=== PATIENT | male | born 1940 | race Caucasian/White ===

== ENCOUNTER 2019-08-31 14:29 | Inpatient (IN) ==
--- NOTE | 2019-08-31 15:00 | Diag Imaging Result Doc PS360 ---
EXAM: CT HEAD W/O CONTRAST INDICATION: poss stroke TECHNIQUE: This exam was performed using automated exposure control, adjustment of mA or kV according to patient size, and/or use of iterative reconstruction technique. COMPARISON: None. FINDINGS: There is suggestion of very minimal white matter microangiopathy in the subcortical white matter of the frontal lobes. There is no definite acute infarct given the limited sensitivity of CT versus MRI. There is no discrete intracranial mass, mass effect, or intracranial hemorrhage. The surrounding soft tissues and bony structures are essentially unremarkable. IMPRESSION: Suggestion of minimal white matter microangiopathy. No definite acute intracranial pathology by CT. Electronically signed by Kei Omer 08/31/2019 2:58 PM
[2019-08-31] MEDS ORDERED: NS 1,000 ML IV ONE ×2 (15:32→21:42)
[2019-08-31] MEDS ORDERED: ASPIRIN PO ONE (15:33)
--- NOTE | 2019-08-31 16:32 | EKG Report ---
Test Performed on : 08/31/2019 4:30:38 PM Test Reason : Stroke like symptoms Blood Pressure : / mmHG Vent. Rate : 051 BPM Atrial Rate : 051 BPM P-R Int : 160 ms QRS Dur : 088 ms QT Int : 412 ms P-R-T Axes : 022 047 102 degrees QTc Int : 379 ms Sinus bradycardia. T wave abnormality, consider lateral ischemia Abnormal ECG No previous ECGs available Unconfirmed Result
[2019-08-31 16:35] LABS: BASO# 0.05 X1000 (0.0-0.2); BASO% 0.4 % (0.0-0.8); EOS# 0.16 X1000 (0.0-0.7); EOS% 1.3 % (0.0-10.0); HEMATOCRIT 42.6 % (42.0-52.0); HEMOGLOBIN 14.3 g/dL (14.0-18.0); IMM GRAN# 0.14 X1000 (0.0-0.04); IMM GRAN% 1.1 % (0.0-0.5); LYMPH# 2.03 X1000 (1.2-3.4); LYMPH% 16.3 % (20.5-51.1); MCH 29.8 PG (27-31); MCHC 33.6 g/dL (33-37); MCV 88.8 FL (81-99); MONO# 1.11 X1000 (0.11-0.59); MONO% 8.9 % (1.7-9.3); NEUT# 8.95 X1000 (1.4-6.5); PLT 166 X1000 (130-400); RDW 13.7 % (11.5-14.5); WBC 12.44 X1000 (4.8-10.8)
[2019-08-31 16:44] LABS: INR 1.16
[2019-08-31 16:45] LABS: PTT 23.2 Seconds (22.3-41.8)
--- NOTE | 2019-08-31 16:49 | Diag Imaging Result Doc PS360 ---
EXAM: CHEST-PORTABLE INDICATION: stroke like symptoms TECHNIQUE: One view COMPARISON: None. FINDINGS: The lungs are grossly clear. There is no discrete pleural fluid collection or pneumothorax. The cardiomediastinal silhouette and central vasculature are grossly unremarkable. IMPRESSION: No evidence of acute pathology by plain radiograph. Electronically signed by Kei Omer 08/31/2019 4:46 PM
[2019-08-31 16:53] LABS: ALB/GLOB RATIO 1.6; ALBUMIN 4.1 g/dL (3.5-5.0); CALCIUM 9.3 mg/dL (8.8-10.2); CREATININE 1.8 mg/dL (0.7-1.2); MAGNESIUM 2.4 mg/dL (1.5-2.7); POTASSIUM 4.4 mmol/L (3.5-5.1); TOTAL BILIRUBIN 0.33 mg/dL (0.20-1.00); TOTAL PROTEIN 6.6 g/dL (6.3-8.3)
--- NOTE | 2019-08-31 18:41 | PROVIDER DOCUMENTATION ---
This chart was entered by Alexandra Kunz Scribe, acting as scribe for Cruz Benedict MD. HPI-Syncope/Dizziness - General Source: patient, family - History of Present Illness-Syncope/Dizzy Prior Episodes: reports: single episode today Onset/Duration: reports: just prior to arrival Timing: reports: resolved prior to arrival Symptoms prior to episode: reports: none Context: reports: almost passed out. denies: incontinent of urine, incontinent of stool Loss of Consciousness: no loss of consciousness Current Symptoms: reports: weakness (left sided) Recently Seen Here or By Another Healthcare Provider: Yes (PCP) <Cruz Benedict - Last Filed: 08/31/19 18:40> <Saul Banks - Last Filed: 08/31/19 20:39> - General Chief Complaint: Near Syncope Stated Complaint: poss stroke Time Seen by Provider: 08/31/19 15:26 Allergies/Adverse Reactions: Patient Allergies Allergy/AdvReac Type Severity Reaction Status Date / Time No Known Allergies Allergy Verified 08/31/19 16:31 Home Medications: Home Medication List Medication Instructions Recorded Confirmed Last Taken Type Amlodipine Besylate 5 mg PO BID 08/31/19 08/31/19 Unknown History Benazepril HCl 40 mg PO QAM 08/31/19 08/31/19 Unknown History Clonidine [Catapres] 0.1 mg PO BID 08/31/19 08/31/19 Unknown History Levothyroxine Sodium [Levoxyl] 88 mcg PO DAILY 08/31/19 08/31/19 Unknown History Metoprolol Succinate E.r. [Toprol 50 mg PO BID 08/31/19 08/31/19 Unknown History Xl] Tamsulosin [Flomax] 0.4 mg PO DAILY 08/31/19 08/31/19 Unknown History - History of Present Illness-Syncope/Dizzy Nature of Presenting Problem: Patient is a 78 y/o male presenting to the ED today c/o stroke-like symptoms. Daughter reports that patient had sudden onset of decreased responsiveness, pallor, slurred speech, and left sided weakness that lasted approximately 15-20 minutes. EMS confirms that patient had weakness in left upper extremity upon arrival. Daughter reports patient has had episodes of left lower extremity weakness intermittently for the last 4 months and had an MRI of his lumbar spine today to evaluate this. Patient denies chest pain or headache preceding event but states he "felt funny". Patient has full function in left upper extremity now but complains of weakness in left leg, though per family report this is common. Denies all other signs/symptoms. (Cruz Benedict) Review of Systems - Adult - REVIEW OF SYSTEMS - ADULT Constitutional: denies: chills, fever Eyes: reports: no symptoms reported Ears, Nose, Mouth & Throat: reports: no symptoms reported Cardiovascular: denies: chest pain Respiratory: denies: cough, shortness of breath Gastrointestinal: denies: abdominal pain, diarrhea, nausea, vomiting Genitourinary: reports: no symptoms reported Musculoskeletal: reports: no symptoms reported Integumentary: reports: no symptoms reported Neurological: reports: see HPI, other (left sided weakness). denies: headache/migraines Psychiatric: reports: no symptoms reported Endocrine: reports: no symptoms reported Hematologic/Lymphatic: reports: no symptoms reported Allergic/Immunologic: reports: no symptoms reported All Other Systems: Reviewed and Negative <Cruz Benedict - Last Filed: 08/31/19 18:40> Past History - Adult - PAST MEDICAL HISTORY-ADULT Review of Records: reports: Old Records Reviewed, Nursing Assessment Review, Medications Reviewed, Social history reviewed & non-contributory. <Cruz Benedict - Last Filed: 08/31/19 18:40> Physical Exam-General - PHYSICAL EXAM-ADULT Initial Vital Signs Reviewed: Yes - CONSTITUTIONAL General Appearance: alert, no apparent distress - EYES Eyes: PERRL/EOMI, pink conjunctivae - HEAD, EARS, NOSE, MOUTH & THROAT HENMT: normocephalic/atraumatic, moist mucous membranes - NECK Neck: full range of motion, supple - RESPIRATORY Respiratory: lungs clear, normal breath sounds, no respiratory distress, no accessory muscle use - CARDIOVASCULAR Cardiovascular: regular rate, rhythm, no edema - GASTROINTESTINAL (ABDOMEN) Abdominal Exam: non tender, soft - LYMPHATIC Lymphatic: no adenopathy - MUSCULOSKELETAL Back Exam: normal inspection Extremity: normal range of motion, normal gait, normal inspection - SKIN Integumentary: normal color, normal turgor, diaphoresis - NEUROLOGIC Neurologic: grossly normal, no motor/sensory deficits - PSYCHIATRIC Psych/Mental Status: normal mood/affect, normal thought content, normal thought process <Cruz Benedict - Last Filed: 08/31/19 18:40> Progress - PLAN OF CARE/RESULTS Result Diagrams: 08/31/19 16:16 08/31/19 16:16 - EKG 1 Time of EKG reading by physician:: 16:31 EKG Read and Signed by:: Cruz Benedict EKG Interpretation (*Must complete 3 of following elements*): Abnormal Rate: 51 Rhythm: Sinus bradycardia QRS: LVH ST Wave: non-specific ST changes Comments: not ectopic - XRAY 1 XRAY Study: Chest Impression: See EMR Report (EXAM: CHEST-PORTABLE INDICATION: stroke like symptoms TECHNIQUE: One view COMPARISON: None. FINDINGS: The lungs are grossly clear. There is no discrete pleural fluid collection or pneumothorax. The cardiomediastinal silhouette and central vasculature are grossly unremarkable. IMPRESSION: No evidence of acute pathology by plain radiograph. Electronically signed by Kei Omer 08/31/2019 4:46 PM 08/31/19 1646 Interpreting Physician: Kei Omer MD Dictated Date/Time: 08/31/19 1646 cc: Cruz Benedict MD; Alfred Antoine) - CT/MRI 1 CT Study: Head Impression: See EMR Report (EXAM: CT HEAD W/O CONTRAST INDICATION: poss stroke TECHNIQUE: This exam was performed using automated exposure control, adjustment of mA or kV according to patient size, and/or use of iterative reconstruction technique. COMPARISON: None. FINDINGS: There is suggestion of very minimal white matter microangiopathy in the subcortical white matter of the frontal lobes. There is no definite acute infarct given the limited sensitivity of CT versus MRI. There is no discrete intracranial mass, mass effect, or intracranial hemorrhage. The surrounding soft tissues and bony structures are essentially unremarkable. IMPRESSION: Suggestion of minimal white matter microangiopathy. No definite acute intracranial pathology by CT. Electronically signed by Kei Omer 08/31/2019 2:58 PM 08/31/19 1458 Interpreting Physician: Kei Omer MD Dictated Date/Time: 08/31/19 1457 cc: Cruz Benedict MD; Alfred Antoine) - CHANGE OF SHIFT REPORT (ED Provider) 1 Report Given and Care Transferred to:: Dr. Banks Time of Transfer: 19:00 Items Pending: Labs <Cruz Benedict - Last Filed: 08/31/19 18:40> - PLAN OF CARE/RESULTS Result Diagrams: 08/31/19 16:16 08/31/19 16:16 - CONSULTS/PCP/HOSPITALIST Notification #1 *Consult/PCP/Hospitalist*: Dr Maravilla Time Discussed: 20:35 Consult Disposition: Will see in ED, Admit <DarrenSaul - Last Filed: 08/31/19 20:39> - PLAN OF CARE/RESULTS Progress/Plan/Lab Results: Vital Signs - 8 hr 08/31/19 14:40 08/31/19 15:54 08/31/19 19:00 Temperature 98 F 98.7 F Pulse Rate 54 L 52 L 55 L Respiratory Rate 18 14 18 Blood Pressure 135/74 153/73 155/78 O2 Sat by Pulse Oximetry 98 97 95 08/31/19 19:30 Temperature Pulse Rate 54 L Respiratory Rate 14 Blood Pressure 156/82 O2 Sat by Pulse Oximetry 95 08/31/19 18:09 Influenza Screen - Final Nasopharyngeal Laboratory Results - last 24 hr 08/31/19 08/31/19 08/31/19 16:16 16:16 16:16 WBC 12.44 H RBC 4.80 Hgb 14.3 Hct 42.6 MCV 88.8 MCH 29.8 MCHC 33.6 RDW Std Deviation 13.7 Plt Count 166 MPV 12.0 H Immature Gran % (Auto) 1.1 H Neut % (Auto) 72.0 Lymph % (Auto) 16.3 L [place] % (Auto) 8.9 Eos % (Auto) 1.3 Baso % (Auto) 0.4 Immature Gran # (Auto) 0.14 H Neut # (Auto) 8.95 H Lymph # (Auto) 2.03 [place] # (Auto) 1.11 H Eos # (Auto) 0.16 Baso # (Auto) 0.05 PT INR PTT (Actin FS) Sodium 141 Potassium 4.4 Chloride 107 Carbon Dioxide 20 L Anion Gap 14 BUN 37 H Creatinine 1.8 H Estimated GFR/1.73 m2 37 BUN/Creatinine Ratio 21 Glucose 139 H POC Glucose Calculated Osmolality 292 Calcium 9.3 Magnesium 2.4 Total Bilirubin 0.33 AST 15 ALT 24 Alkaline Phosphatase 73 Troponin T High Sens Dsx-Q-Uvccfqqrybv Pept Total Protein 6.6 Albumin 4.1 Globulin 2.5 Albumin/Globulin Ratio 1.6 Plasma Lactate TSH 4.23 H Urine Source Urine Color Urine Turbidity Urine pH Ur Specific [place] Urine Protein Ur Glucose (Stick) Ur Ketones (Stick) Urine Blood Urine Nitrite Urine Bilirubin Urobilinogen Dipstick Urine Leukocytes Urine WBC (Auto) Urine RBC (Auto) U Epithel Cells (Auto) Urine Bacteria (Auto) Urine Opiates Screen Ur Oxycodone Screen Ur Methadone, Qual Ur Barbiturates Screen Ur Phencyclidine Scrn Ur Amphetamines Screen U Benzodiazepines Scrn Urine Cocaine Screen U Cannabinoids Screen 08/31/19 08/31/19 08/31/19 16:16 16:16 16:16 WBC RBC Hgb Hct MCV MCH MCHC RDW Std Deviation Plt Count MPV Immature Gran % (Auto) Neut % (Auto) Lymph % (Auto) [place] % (Auto) Eos % (Auto) Baso % (Auto) Immature Gran # (Auto) Neut # (Auto) Lymph # (Auto) [place] # (Auto) Eos # (Auto) Baso # (Auto) PT 15.0 INR 1.16 PTT (Actin FS) 23.2 Sodium Potassium Chloride Carbon Dioxide Anion Gap BUN Creatinine Estimated GFR/1.73 m2 BUN/Creatinine Ratio Glucose POC Glucose Calculated Osmolality Calcium Magnesium Total Bilirubin AST ALT Alkaline Phosphatase Troponin T High Sens 24 H Sbq-G-Jxnxzckpecv Pept 631 H Total Protein Albumin Globulin Albumin/Globulin Ratio Plasma Lactate TSH Urine Source Urine Color Urine Turbidity Urine pH Ur Specific [place] Urine Protein Ur Glucose (Stick) Ur Ketones (Stick) Urine Blood Urine Nitrite Urine Bilirubin Urobilinogen Dipstick Urine Leukocytes Urine WBC (Auto) Urine RBC (Auto) U Epithel Cells (Auto) Urine Bacteria (Auto) Urine Opiates Screen Ur Oxycodone Screen Ur Methadone, Qual Ur Barbiturates Screen Ur Phencyclidine Scrn Ur Amphetamines Screen U Benzodiazepines Scrn Urine Cocaine Screen U Cannabinoids Screen 08/31/19 08/31/19 08/31/19 16:28 17:30 17:30 WBC RBC Hgb Hct MCV MCH MCHC RDW Std Deviation Plt Count MPV Immature Gran % (Auto) Neut % (Auto) Lymph % (Auto) [place] % (Auto) Eos % (Auto) Baso % (Auto) Immature Gran # (Auto) Neut # (Auto) Lymph # (Auto) [place] # (Auto) Eos # (Auto) Baso # (Auto) PT INR PTT (Actin FS) Sodium Potassium Chloride Carbon Dioxide Anion Gap BUN Creatinine Estimated GFR/1.73 m2 BUN/Creatinine Ratio Glucose POC Glucose 133 H Calculated Osmolality Calcium Magnesium Total Bilirubin AST ALT Alkaline Phosphatase Troponin T High Sens Zsz-W-Cfhbwopmvnc Pept Total Protein Albumin Globulin Albumin/Globulin Ratio Plasma Lactate TSH Urine Source CLEAN CATCH Urine Color YELLOW Urine Turbidity CLEAR Urine pH 6.0 Ur Specific [place] 1.015 Urine Protein TRACE A Ur Glucose (Stick) NEGATIVE Ur Ketones (Stick) NEGATIVE Urine Blood NEGATIVE Urine Nitrite NEGATIVE Urine Bilirubin NEGATIVE Urobilinogen Dipstick NORMAL Urine Leukocytes NEGATIVE Urine WBC (Auto) <10 Urine RBC (Auto) <10 U Epithel Cells (Auto) <10 Urine Bacteria (Auto) NEGATIVE Urine Opiates Screen NONE DETECTED Ur Oxycodone Screen NONE DETECTED Ur Methadone, Qual NONE DETECTED Ur Barbiturates Screen NONE DETECTED Ur Phencyclidine Scrn NONE DETECTED Ur Amphetamines Screen NONE DETECTED U Benzodiazepines Scrn NONE DETECTED Urine Cocaine Screen NONE DETECTED U Cannabinoids Screen NONE DETECTED 08/31/19 18:09 WBC RBC Hgb Hct MCV MCH MCHC RDW Std Deviation Plt Count MPV Immature Gran % (Auto) Neut % (Auto) Lymph % (Auto) [place] % (Auto) Eos % (Auto) Baso % (Auto) Immature Gran # (Auto) Neut # (Auto) Lymph # (Auto) [place] # (Auto) Eos # (Auto) Baso # (Auto) PT INR PTT (Actin FS) Sodium Potassium Chloride Carbon Dioxide Anion Gap BUN Creatinine Estimated GFR/1.73 m2 BUN/Creatinine Ratio Glucose POC Glucose Calculated Osmolality Calcium Magnesium Total Bilirubin AST ALT Alkaline Phosphatase Troponin T High Sens Sjf-S-Ocxgfzvlpma Pept Total Protein Albumin Globulin Albumin/Globulin Ratio Plasma Lactate 1.1 TSH Urine Source Urine Color Urine Turbidity Urine pH Ur Specific [place] Urine Protein Ur Glucose (Stick) Ur Ketones (Stick) Urine Blood Urine Nitrite Urine Bilirubin Urobilinogen Dipstick Urine Leukocytes Urine WBC (Auto) Urine RBC (Auto) U Epithel Cells (Auto) Urine Bacteria (Auto) Urine Opiates Screen Ur Oxycodone Screen Ur Methadone, Qual Ur Barbiturates Screen Ur Phencyclidine Scrn Ur Amphetamines Screen U Benzodiazepines Scrn Urine Cocaine Screen U Cannabinoids Screen Orders Category Date Time Status Cardiac Monitoring DIRECTED Care 08/31/19 15:31 Active Finger Stick Blood Sugar (ED) DIRECTED Care 08/31/19 15:31 Completed Oxygen Therapy- ED Nursing DIRECTED Care 08/31/19 15:31 Active Saline Loc NOW Care 08/31/19 15:31 Active CHEST-PORTABLE [RAD] Stat Exams 08/31/19 15:[address] HEAD W/O CONTRAST [CT] Stat Exams 08/31/19 14:39 Completed BLOOD CULTURE [BLDCUL] Stat Lab 08/31/19 18:11 Received CBC WITH ELECTRONIC DIFF [HEME] Stat Lab 08/31/19 16:16 Completed COMPREHENSIVE METABOLIC PANEL [CHEM] Stat Lab 08/31/19 16:16 Completed INFLUENZA SCREEN A/B Stat Lab 08/31/19 18:09 Completed LACTATE, PLASMA [CHEM] Stat Lab 08/31/19 18:09 Completed MAGNESIUM [CHEM] Stat Lab 08/31/19 16:16 Completed PRO B-NATRIURETIC PEPTIDE Stat Lab 08/31/19 16:16 Completed PROTIME WITH INR [COAG] Stat Lab 08/31/19 16:16 Completed PTT [COAG] Stat Lab 08/31/19 16:16 Completed TROPONIN T HIGH SENSITIVITY Stat Lab 08/31/19 16:16 Completed TSH Stat Lab 08/31/19 16:16 Completed URINALYSIS W/POSS RFLX CULT [URINALYSIS] Stat Lab 08/31/19 17:30 Completed URINE DRUG SCREEN Stat Lab 08/31/19 17:30 Completed 0.9% Sodium Chloride Inj [Ns] 1,000 ml Med 08/31/19 15:32 Discontinued IV 999 mls/hr Aspirin Med 08/31/19 15:33 Discontinued 325 mg PO NOW ONE EKG [EKG] Stat Ther 08/31/19 15:31 Draft At recheck, pt notes that his symptoms have resolved completely and agrees with plan to be admitted. (Saul Banks) Departure - Departure Certified Medical Emergency: Emergent - Critical Care Note This patient required my direct & personal management of CC.: No <Cruz Benedict - Last Filed: 08/31/19 18:40> - Departure Date of Disposition Decision: 08/31/19 Time of Disposition Decision: 20:35 Certified Medical Emergency: Emergent - Critical Care Note This patient required my direct & personal management of CC.: No <Saul Banks - Last Filed: 08/31/19 20:39> - Departure DIAGNOSIS: TIA (transient ischemic attack), HTN (hypertension), Renal insufficiency Disposition: ADMITTED INPATIENT 09 Condition: Fair Referrals and Follow-Ups: Alfred Antoine [Primary Care Provider] - Attestation - Physician/ LINO Attestation Patient care was provided by Advanced Practice Provider:: No The physician spent face to face time with patient:: Yes Advanced Practice Provider documentation review:: Supervising physician onsite and consulted in the evaluation and care of this patient. The physician did have a face to face encounter with the patient. <Cruz Benedict - Last Filed: 08/31/19 18:40> This chart was documented by the indicated scribe, (Alexandra Kunz, Scribe) and accurately reflects the services I performed and decisions made by me, Cruz Benedict MD, as attested by the provider's signature.
[2019-08-31 19:07] LABS: URINE SOURCE CLEAN CATCH
[2019-08-31 19:13] LABS: BILIRUBIN URINE NEGATIVE (NEGATIVE); BLOOD URINE NEGATIVE (NEGATIVE); COLOR YELLOW; GLUCOSE URINE NEGATIVE (NEGATIVE); KETONE URINE NEGATIVE (NEGATIVE); LEUKOCYTES URINE NEGATIVE (NEGATIVE); NITRITE URINE NEGATIVE (NEGATIVE); PROTEIN URINE TRACE mg/dL (NEGATIVE); SP GRAVITY URINE 1.015; TURBIDITY URINE CLEAR (CLEAR); UR EPITHELIAL CELLS <10 /HPF (<10); URINE BACTERIA NEGATIVE /HPF; URINE RBC <10 /HPF (<10); URINE WBC <10 /HPF (<10); UROBILINOGEN URINE NORMAL (NORMAL)
[2019-08-31 19:33] LABS: UR AMPHETAMINES QUAL NONE DETECTED (NONE DETECT); UR BARBITUATES QUAL NONE DETECTED (NONE DETECT); UR BENZODIAZEPIN QUAL NONE DETECTED (NONE DETECT); UR CANNABINOIDS QUAL NONE DETECTED (NONE DETECT); UR COCAINE QUAL NONE DETECTED (NONE DETECT); UR METHADONE QUAL NONE DETECTED (NONE DETECT); UR OPIATES QUAL NONE DETECTED (NONE DETECT); UR OXYCODONE QUAL NONE DETECTED (NONE DETECT); UR PCP QUAL NONE DETECTED (NONE DETECT)
[2019-08-31 22:08] LABS: HEMOGLOBIN A1C 5.2 % (4.8-6.0)
[2019-08-31] MEDS ORDERED: NORCO-5 PO ONE (22:49)
--- NOTE | 2019-08-31 23:07 | HISTORY AND PHYSICAL ---
ADDENDUM: The patient is 78. He has a history of hypertension, not a lot of medical problems. He was getting an MRI of his hip today and he developed an episode where he became pale, trouble with his speech. He could not move his left arm or his left leg. His neurologic exam was nonfocal except for atrial fibrillation, and he is certainly not in atrial fibrillation right now, so we will observe him. This is a [id number] encounter note with Raoul Brown. cc: Omar Maravilla MD
[2019-08-31] MEDS ORDERED: TYLENOL PO PRN (23:33)
[2019-08-31] MEDS ORDERED: ZOFRAN IV PRN (23:33)
[2019-09-01] MEDS: LOVENOX SUBQ SCH (01:40)
[2019-09-01] MEDS ORDERED: NORCO-5 PO ONE (02:16)
--- NOTE | 2019-09-01 02:34 | HISTORY AND PHYSICAL ---
CHIEF COMPLAINT: Stroke-like symptom. HPI: This is a pleasant 78-year-old male who is fairly hard of hearing. He is here with his daughter and . He came in with complaint of stroke-like symptoms. Apparently he had a sudden onset of decreased responsiveness, pallor, slurring of speech, and left-sided weakness that lasted approximately 15-20 minutes. The patient has been having intermittent left lower extremity weakness for the last 4 months. Apparently had a lumbar spine MRI today that was ordered by his primary care provider, Dr. Alfred Antoine, at [facility]. The family tells me that Dr. Antoine had told them this was a grossly normal evaluation, that there was nothing wrong in his lumbar spine. On evaluation his left side is notably weaker than his right, his upper and lower extremity. He is not having slurring of his speech any more, but he be placed in the hospital for further evaluation and treatment. PAST MEDICAL HISTORY: Hypertension, hypothyroidism, BPH. PREVIOUS SURGICAL HISTORY: Bilateral knee replacements, 2 back surgeries, hemorrhoidectomy, bilateral cataract surgery, and a thyroid cyst removal. SOCIAL HISTORY: Lives at home with his . No tobacco, alcohol, or illicit drugs. He is a retired welding machine operator/tender. He does wear a hearing aid. FAMILY HISTORY: Both mother and father had a strong history of coronary artery disease. ALLERGIES: NO KNOWN DRUG ALLERGIES. HOME MEDICATIONS: 1. Benazepril 40 mg p.o. every morning. 2. Amlodipine 5 mg p.o. b.i.d. 3. Clonidine 0.1 mg p.o. b.i.d. 4. Levothyroxine sodium 88 mcg p.o. daily. 5. Metoprolol succinate extended release 15 mg p.o. b.i.d. 6. Flomax 0.4 mg p.o. daily. 7. He was recently given a Medrol Dosepak, a steroid shot and naproxen related to the left lower extremity pain. REVIEW OF SYSTEMS: A 14-point review of systems was conducted with the patient. He does complain of left hip pain as well as some right hip pain. He denied any type of chest pain, shortness of breath, nausea, vomiting, dizziness. All other pertinent positives for admission are listed above in the HPI. All other systems reviewed and found to be negative. PHYSICAL EXAMINATION: VITAL SIGNS: Temperature 98.7 degrees, pulse 52, respirations 14, blood pressure 156/82, oxygen saturation 95% on room air. GENERAL: Pleasant 78-year-old male lying in the ER stretcher. He is alert and oriented x3. He is hard of hearing. He is accompanied by his and daughter who are very supportive. HEENT: Head is atraumatic, normocephalic. Pupils equal, round, reactive to light. Extraocular eye movements intact. Sclera is anicteric. Conjunctiva pink. Oral mucosa is moist. NECK: Supple. No JVD. No thyromegaly. All facial expressions are symmetrical. Trachea is midline. No cervical lymphadenopathy. CARDIAC: S1, S2 appreciated. He is bradycardic. No murmurs, gallops, rubs. LUNGS: Clear to auscultation bilaterally. No rhonchi, wheezes, rales. Symmetric rise and fall respirations. ABDOMEN: Soft, nondistended, nontender. Bowel sounds present all 4 quadrants. Normoactive. No pulsatile masses or organomegaly. EXTREMITIES: No clubbing, cyanosis or edema. 2+ pedal pulses bilaterally. GENITOURINARY: No bladder distention. Patient voids, otherwise deferred. NEUROLOGICAL: Alert and oriented x3. He is hard of hearing. He is having left upper and lower extremity weakness. He did not have any palmar drift or facial asymmetry. Gait could not be tested as he states that he cannot bear weight on his left leg. He was able to hold it against gravity, though, but it is roughly a 2/5 strength, and the upper extremity is a 3/5 strength, where the right upper and lower extremity are 5/5 strength. Cranial nerves are otherwise grossly intact. DIAGNOSTIC DATA: Chest x-ray no acute pathology. CT of the head very minimal white matter microangiopathy in the subcortical white matter of the frontal lobes. No definitive acute CVA on the CT. LABORATORY DATA: WBC 12.44, hemoglobin 14.3, hematocrit 42.6, platelet count 166,000. Sodium 141, potassium 4.4, chloride 107, carbon dioxide 20, BUN 37, creatinine 1.8, glucose 139. Urine unremarkable. Toxicology screen is negative. ASSESSMENT: 1. Rule out cerebrovascular accident or transient ischemic attack. 2. Hypertension. 3. Bradycardia, possibly symptomatic. 4. Hypothyroidism. 5. Acute kidney injury. PLAN: Will admit the patient to the medical floor. MRI, echo and carotid ultrasound tomorrow morning. Will hold his FILIPPO inhibitor. As noted above, the patient has been taking NSAIDs as well as steroids. He has an acute kidney injury now. Will hold all anti-inflammatories as well. Will allow for permissive hypertension over night. Will also hold his p.m. dose of beta drea as his heart rate was in the low 50s. Will monitor with telemetry. Will resume beta drea tomorrow if heart rate is greater than 65. Recheck chemistry panel after rehydration. Check hemoglobin A1c as patient's glucose was marginally elevated. Further recommendations based on patient's clinical course. Dictated by JULIAN Mata for Omar Maravilla MD cc: JULIAN Mata MD Robert Hall, MD
[2019-09-01 07:13] LABS: CREATININE 1.5 mg/dL (0.7-1.2); POTASSIUM 4.4 mmol/L (3.5-5.1)
[2019-09-01] MEDS: NORVASC PO SCH ×2 (07:55→09:29)
[2019-09-01] MEDS: FLOMAX PO SCH ×2 (07:55→09:29)
[2019-09-01] MEDS: SYNTHROID PO SCH (07:55)
[2019-09-01] MEDS ORDERED: TOPROL XL PO SCH (09:00)
[2019-09-01] MEDS ORDERED: CATAPRES PO SCH (09:00)
--- NOTE | 2019-09-01 11:51 | Diag Imaging Result Doc PS360 ---
EXAM: MRI BRAIN W/WO CONTRAST INDICATION: stroke COMPARISON: CT head dated 08/31/2019 FINDINGS: There is patchy cortical and subcortical restricted diffusion involving the right frontal lobe medially consistent with acute infarct in the right [place] distribution. This cannot be identified on yesterday's head CT, probably because it was hyperacute. There is corresponding T2/FLAIR signal hyperintensity. Although this, there is mild patchy T2/FLAIR hyperintensity in the periventricular and subcortical white matter suggesting very mild microangiopathy. There is no discrete intracranial mass, mass effect, or intracranial hemorrhage. There is no evidence of abnormal intracranial enhancement. The surrounding soft tissues and bony structures are essentially unremarkable. IMPRESSION: Patchy restricted diffusion involving the medial right frontal lobe indicating acute infarct in the right [place] distribution. Electronically signed by Kei Omer 09/01/2019 11:49 AM
[2019-09-01] MEDS ORDERED: LABETALOL IV PRN (15:51)
--- NOTE | 2019-09-01 18:30 | PROGRESS NOTE ---
DATE: 09/01/2019 INTERVAL HISTORY: The patient underwent MRI which had suggested left-sided anterior cerebral artery territory stroke. His blood pressure has been elevated. His pulse has been in the 50s. SUBJECTIVE: Mr. Babb denies any known history of atrial fibrillation, stroke, or bleeding in the past. His family is at bedside. VITAL SIGNS: Temperature 98.7 degrees, pulse 56, respiratory rate 19, blood pressure 177/65. He is saturating 98% room air. PHYSICAL EXAMINATION: HEENT: Oral cavity is moist. Lungs: Air entry bilaterally equal. No wheeze, rhonchi, or crackles. Cardiovascular: S1, S2 normal. No murmur or gallop. Appears regular rhythm. Abdomen: Soft, nontender. Extremities: No lower extremity edema. Neurologic: He is alert. He is oriented x3. No facial asymmetry. Pupils are bilaterally equal, reactive to light. Extraocular movements intact. Tongue appears midline. Speech and cough are intact. I did not check for olfaction. He does have hearing impairment at baseline. Sensations are intact on face, bilateral upper and lower extremities to cruel touch. Power seems to have slightly decreased on the left upper extremity at the elbow, wrist, and interphalangeal joints, and left lower extremity at hip, knee, and ankle joint as compared to right lower extremity. I would say power is 5/5 in right upper and lower extremity and 4/5 in left upper and lower extremity. His shoulder shrug, however, appears intact bilaterally and equal. He does have upgoing plantar response on the left foot. Reflexes appear 2+ bilateral biceps and knee jerks. LABS: No CBC today. BMP suggestive of chloride of 111, BUN of 30, creatinine of 1.5. Patient does not know of kidney dysfunction. IMAGING: Brain MRI had suggested patchy restricted diffusion involving the medial right frontal lobe indicating acute infarct in the right KEAGAN territory. ASSESSMENT AND PLAN: 1. 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 Follow up echocardiogram and ultrasound of the carotids to rule out intracardiac thrombus and carotid artery stenosis. I also ordered a brain MR angiography. The patient is already out of 24 hour window. I will slowly resume his home antihypertensive medication. Apparently, he did have an episode of left lower extremity numbness and weakness 3 weeks ago, but seemed to have improved slightly. It is possible he was experiencing stroke symptoms at that time. I will start him on aspirin, high-intensity statin, and consult Neurology for further recommendations. I will keep him on enoxaparin for DVT prophylaxis and physical therapy has been consulted. He does not have any swallowing or speech abnormality at the moment. 2. Essential hypertension. Start patient on home benazepril tomorrow and I will give him intravenous labetalol as needed. 3. Benign prostatic hypertrophy. Continue home tamsulosin. 4. Kidney dysfunction. The chronicity of this is not known. The patient denies any known kidney disease. I will follow up with [facility] tomorrow and he should have outpatient primary regular doctor follow up and I discussed this with the patient. 5. Disposition. I am awaiting echocardiogram, ultrasound carotid results. I would appreciate Neurology's input. Based on that, I would anticipate discharge in the next 24 hours. The patient may need home physical therapy set up. cc: Feliciano Aguirre MD
--- NOTE | 2019-09-01 18:58 | ECHO REPORT ---
ORDER DATE: 09/01/2019 MEASUREMENTS: Septal thickness 1.2, left ventricular internal diameter in diastole 4.7, posterior wall thickness 1.2. Aortic root 3.0, left atrium 4. SUMMARY: 1. Technically difficult study due to limited acoustic window quality. 2. Aortic valve is trileaflet and opens adequately on 2-dimensional images. The peak gradient across the aortic valve is less than 10 mmHg. Mitral and tricuspid valves are without evidence of structural abnormality while pulmonic valve is not well demonstrated. The aortic root is normal in size. 3. Normal left ventricular chamber size with mild to moderate concentric left hypertrophy is suggested. The estimated left ventricular ejection fraction appears to be at least 70%. No obvious regional wall motion abnormality can be appreciated. Left atrium is mildly enlarged. Right atrium and right ventricle normal size with grossly preserved right ventricular systolic function. 4. No pericardial effusion. 5. Inferior vena cava not well demonstrated. cc: MD Davis Egan CRNP
[2019-09-01] MEDS ORDERED: LIPITOR PO SCH (21:00)
[2019-09-02] MEDS: LOVENOX SUBQ SCH (00:21)
[2019-09-02] MEDS: SYNTHROID PO SCH (06:43)
[2019-09-02 08:16] LABS: CREATININE 1.4 mg/dL (0.7-1.2); POTASSIUM 4.3 mmol/L (3.5-5.1)
[2019-09-02] MEDS ORDERED: NORVASC PO SCH (09:00)
[2019-09-02] MEDS ORDERED: LOTENSIN PO SCH (09:00)
[2019-09-02] MEDS ORDERED: ASPIRIN PO SCH (09:00)
[2019-09-02] MEDS: FLOMAX PO SCH (09:16)
--- NOTE | 2019-09-02 09:45 | Diag Imaging Result Doc PS360 ---
EXAM: MRA BRAIN W/O CONTRAST 09/02/2019 HISTORY: Right KEAGAN CVA. TECHNIQUE: 3-D [id number] COMMENT: There is nonvisualization of the majority of the right anterior cerebral artery. Both A1 segments appear to be patent. Both middle cerebral and posterior cerebral arteries are demonstrated although there may be small vessel disease bilaterally. There are fewer of the distal branches visible on the right in the middle cerebral artery and there is some apparent poststenotic dilatation of one of the sylvian branches. IMPRESSION: Occlusion of the right anterior cerebral artery beyond the A1 segment. Small vessel disease. Electronically signed by Adán Vyas 09/02/2019 9:42 AM
[2019-09-02 11:56] VITALS: BP 162/61
[2019-09-02] MEDS ORDERED: PLAVIX PO SCH (12:30)
--- NOTE | 2019-09-02 19:08 | NEUROLOGY CONSULTATION ---
DATE: 09/02/2019 HISTORY: Mr. Babb is 78 years old and there is evidence of acute nondominant right hemisphere infarction with fairly mild left hemiparesis. History from the patient is that he noted sudden onset of clumsiness and weakness in his left leg to the point he could not walk. He noticed he could not use his left hand and he could not raise his left arm well. reports speech was slurred. He did not notice trouble chewing or swallowing. There was no vision disturbance. There was no headache. There was no altered awareness or altered consciousness. He did not notice right-sided weakness. He rested a bit and the deficit did not resolve, so he phoned for ambulance and presented to the emergency department. He was evaluated and admitted. He reports left-sided weakness improved through the day yesterday and is almost completely resolved this morning. He reports having 3 or 4 very similar but much more brief episodes occurring in the last 3 or 4 weeks. Each of these caused left leg weakness and clumsiness and gait difficulty. He is not certain that he had left arm weakness before current episode. He did not notice slurred speech, vision disturbance, headache with prior episodes. Workup includes brain MRI showing restricted diffusion consistent with acute infarction in the right anterior cerebral artery territory. Brain MRA shows no flow in the right anterior cerebral artery beyond the A-1 segment. Echocardiogram did not show source of embolus. He had carotid ultrasound and report is pending. He has been afebrile. Heart rate was initially in the 50s and has ranged 40s to 70s after admission. Systolic blood pressures have ranged 130s to 190s. Past history is remarkable for hypertension and he reports no prior diagnosis of dyslipidemia, diabetes mellitus, cigarette smoking. He reports he was taking his blood pressure medicines as directed. He has hypothyroidism. Lab work showed blood sugars 130s, elevated triglycerides 171, total cholesterol 159, LDL 120, VLDL 34, HDL 27. WBC was 12,000. BUN was initially 37 and later 27. Urine drug screen was all negative. PHYSICAL EXAMINATION: On exam now, Mr. Babb is awake, alert, attentive, appropriate, cheerful, oriented. Speech is not dysarthric. Language function is intact on bedside testing. Recent and remote memory are good. He is quite hard of hearing but communicates well when he can hear me. Head and neck are unremarkable. There is no meningismus. Visual chicas are full, tested carefully in the left field to confrontational finger counting. Extraocular movements are full. Facial motility is symmetric. I do not see definite nasolabial fold asymmetry. Gag is intact. Tongue is midline. Shoulder shrug is equal. Strength is normal in the right limbs. I can overcome the left deltoid grading 4/5, left wrist extensor, 4+/5, left iliopsoas 3+/5. Tone is slightly increased in the left leg and symmetric in the arms. Plantar response is silent bilaterally. He reports slightly diminished pinprick appreciation over the left lower leg and normal pinprick appreciation over the left arm. Proprioception is diminished at the left great toe MTP joint and normal at the right great toe MTP joint. Proprioception is normal at the second finger MCP joint bilaterally. I did not test his gait. IMPRESSION: Mild left hemiparesis, subtle sensory changes on the left, imaging evidence of acute anterior cerebral territory infarction. The findings on MRI are consistent with leg more than arm distribution of weakness. He has risk factors for cerebrovascular ischemic problems, including long-standing hypertension, age. He may also have diabetes mellitus and some dyslipidemia. I do not have any urgent suggestion. I will check on the carotid ultrasound report when available. I would continue treating blood pressure cautiously in the short term, continue aspirin and statin added this admission, consider continuing physical therapy after discharge. Thanks for asking Neurology to see Mr. Babb. cc: MD MARIELLE Peraza III
--- NOTE | 2019-09-02 22:22 | Carotid Study ---
DATE: 09/01/2019 PRODUCTION LINE WORKER: Ponder. REQUESTING PHYSICIAN: JULIAN Mata INDICATIONS: Cerebrovascular accident. FINDINGS: Bilateral carotid artery system is visualized. There are atherosclerotic changes noted in the bilateral bulb extending to proximal internal carotid artery. In the right, this causes elevation of velocities that would technically correlate to a 40% to 59% stenosis in the moderate range; however, the degree of stenosis and morphology of plaque does not seem to be this severe. This will be based off a strict velocity criteria. In the left, there are more mild changes here of 0% to 39%. Vertebrals are antegrade bilaterally. IMPRESSION: Moderate atherosclerotic changes noted on the right with mild atherosclerotic changes noted on the left. cc: MD Davis Carlson CRNP
--- NOTE | 2019-09-04 14:30 | DISCHARGE SUMMARY ---
ADMISSION DATE: 08/31/2019 DISCHARGE DATE: 09/02/2019 CONSULTATIONS: Neurology, Dr. Son. PERTINENT STUDIES: CT head with no acute process. Chest x-ray no acute process. MRI brain with restricted diffusion indicating acute stroke in the right frontal lobe in the anterior cerebral artery distribution. MRA brain showing occlusion of the right anterior cerebral artery beyond the A-1 segment as well some small-vessel disease. DISCHARGE DIAGNOSES: 1. Acute right frontal stroke. 2. Left partial hemiparesis. 3. Hypertension. 4. Hypothyroidism. 5. Benign prostatic hypertrophy. 6. Likely acute kidney injury on chronic kidney disease, 3. HOSPITAL COURSE: The patient presented initially with stroke-like symptoms. He had sudden onset of decreased responsiveness, slurred speech and left-sided weakness. The worst of this lasted approximately 30 minutes. His slurred speech and decreased responsiveness resolved, but he continued to have some left-sided weakness. He had actually had issues with the left-sided weakness off and on for several months. Initially it was thought the patient likely had a TIA, but MRI actually showed acute right-sided stroke in the anterior cerebral artery distribution and MRA confirmed occlusion of the anterior cerebral artery. He was given aspirin and statin. His weakness continued to improve. On the day of discharge, his only residual deficit was subtle left lower extremity weakness and paresthesia. Neurology was involved and had no additional recommendations. After the initial 24 hours, we began working on controlling his blood pressure. Carotid Doppler showed moderate, approximately 40% stenosis on the right and only mild atherosclerosis on the left, but no significant stenosis. Echocardiogram was unremarkable. As patient's symptoms were much improved and workup for secondary cause of stroke was unremarkable, he was discharged home on aspirin, a 3- week course of Plavix, statin and blood pressure medication. DISCHARGE VITAL SIGNS: Temperature 98.3 degrees, pulse 62, respirations 16, blood pressure 162/61, O2 saturation 100% on room air. DISCHARGE DIET: Low-salt. DISCHARGE MEDICATIONS: Amlodipine 5 mg p.o. b.i.d. Synthroid 88 mcg p.o. daily, Toprol-XL 50 mg p.o. b.i.d., atorvastatin 40 mg p.o. at bedtime, aspirin 81 mg p.o. daily, clonidine 0.1 mg p.o. b.i.d. as needed as previously prescribed, Plavix 75 mg p.o. daily for an additional 20 days. FOLLOWUP AND PLAN: Patient discharging home on the above medications to follow up with PCP. TIME SPENT ON DISCHARGE: Greater than 30 minutes spent arranging discharge and counseling patient.
== END 2019-09-02 14:53 | disposition home health service (06) | DRG 65 ==
LOC: SUPCPDRO → ED 14:29 → 4N 23:48 → SUATTDRO 23:48
PROVIDERS: ATTEND Internal Medicine